=== PATIENT | male | born 1945 | race Caucasian/White ===

== ENCOUNTER → 2020-03-14 | Outpatient (CLI) | payer MEDICARE, OTHER ==
[~2020-03-14] MED LIST: ACEPHEN650 M1 PO; ACETAMINOPHEN325 M1 PO; ACETAMINOPHEN650 M5 PO; ALLERTEC; ASPIRIN EC81 M1 PO; ASPIRIN81 M2 PO; BISACODYL SUPP10 MG RE; CIPRO500 MG PO; COLACE100 MG PO; CYCLOBENZAPRINE10 MG PO; DEPAKOTE 250MG250 M1 PO; DEPAKOTE 250MG250 MG PO; FLEXERIL PO; FOLIC ACID 40400 MC1 PO; IBUPROFEN 800800 M1 PO; LEVOTHYROXINE0.05 MG PO; LEXAPRO 10 MG T10 M1 PO; METOCLOPRAMIDE 55 MG PO; MIRALAX255 GM PO; NORCO 5-325 TA1 EACH PO; NORCO 7.5-3251 EACH; OMEPRAZOLE40 MG PO; PLAVIX 75 MG TA75 MG PO; PROTONIX40 M2 PO; TRAMADOL HCL50 MG PO; ZOCOR80 MG PO
== END ==
LOC: M.CT 12:45
DX: M51.36 Other intervertebral disc degeneration, lumbar region (principal); R17 Unspecified jaundice